=== PATIENT | male | born 1965 | race Asian ===

== ENCOUNTER 2017-06-25 12:24 | Emergency (ER) | payer OTHER ==
[~2017-06-25] VITALS: Ht 167.6 cm; Wt 59.7 kg
[2017-06-25 13:34] LABS: HEMATOCRIT 37.8 % (38.0-50.0); MCH 27.4 PG (29.0-34.0); MCHC 34.4 G/DL (30.0-36.0); MCV 79.7 FL (86-99); MEAN PLAT.VOLUME 10.9 uM^3 (9.0-12.4); PLATELET COUNT 174 K/uL (156-360); RBC DIS.WIDTH-CV 12.3 % (11.8-14.6); RBC DIS.WIDTH-SD 35.6 % (39-53); RED BLOOD COUNT 4.74 M/uL (4.00-5.50); WHITE BLOOD COUNT 5.2 K/uL (4.1-10.2)
[2017-06-25 13:45] LABS: CHLORIDE 95 mEq/L (99-109); POTASSIUM 4.2 mEq/L (3.7-5.4); SODIUM 128 mEq/L (136-147)
[2017-06-25 13:48] LABS: ANION GAP 12 MEQ/L (2-14)
[2017-06-25 13:49] LABS: TOTAL BILIRUBIN 0.3 mg/dL (0.0-1.0)
[2017-06-25 13:51] LABS: ALKALINE PHOSPHATASE 113 IU/L (3-129); GLUCOSE 745 mg/dL (70-99)
[2017-06-25 13:52] LABS: GFR ESTIMATE (CALCULATED) 53 mL/min/ (58.99-99999); UREA NITROGEN (BUN) 23 mg/dL (9-23)
[2017-06-25 13:53] LABS: DIRECT BILIRUBIN 0.1 mg/dL (0.0-0.3)
[2017-06-25 13:54] LABS: LIPASE 267 U/L (1.0-51.0); TROP-I INTERPRETATION NEGATIVE; TROPONIN-I 0.02 ng/mL (0.0-0.30)
[2017-06-25] MEDS ORDERED: PERCOCET 5/31 TABLET PO (16:12)
[2017-06-25] MEDS ORDERED: ZOFRAN4 MG PO (16:12)
[2017-06-25 16:21] VITALS: BP 193/112
[2017-06-25 16:24] LABS: POINT-OF-CARE METER ID UU13113747
[2017-06-26 12:00] LABS: POINT-OF-CARE METER ID UU13113747
== END 2017-06-25 16:33 | disposition left against medical advice (07) ==
LOC: EME 12:24 → EDBD 12:24 → EME 16:33
PROVIDERS: Emergency Medicine
DX: E11.65 Type 2 diabetes mellitus with hyperglycemia (principal); K85.90 Acute pancreatitis without necrosis or infection, unspecified; E86.0 Dehydration; Z72.0 Tobacco use; Z88.8 Allergy status to other drugs, medicaments and biological substances; Z91.041 Radiographic dye allergy status
CPT/HCPCS: 80048; 80076; 81003; 82948; 83690; 84484; 85027; 87086; 99281; 99285; J2270; J2405; J7030

== ENCOUNTER 2017-06-28 21:52 | Emergency (ER) | payer OTHER ==
[~2017-06-28] VITALS: Ht 167.6 cm; Wt 48.8 kg
[~2017-06-28 21:52] MED LIST: PERCOCET 5/31 TABLET PO; ZOFRAN4 MG PO
[2017-06-28 22:52] LABS: HEMATOCRIT 37.4 % (38.0-50.0); HEMOGLOBIN 13.2 G/DL (12.5-16.6); MCH 27.4 PG (29.0-34.0); MCHC 35.3 G/DL (30.0-36.0); MCV 77.8 FL (86-99); PLATELET COUNT 193 K/uL (156-360); RBC DIS.WIDTH-CV 12.3 % (11.8-14.6); RBC DIS.WIDTH-SD 34.6 % (39-53); RED BLOOD COUNT 4.81 M/uL (4.00-5.50); WHITE BLOOD COUNT 6.4 K/uL (4.1-10.2)
[2017-06-28 22:55] LABS: CARBON DIOXIDE (BICARBONATE) 25.4 MEQ/L (20-31)
[2017-06-28 23:05] LABS: ALBUMIN 3.4 g/dL (3.2-4.8); CHLORIDE 98 mEq/L (99-109); POTASSIUM 4.5 mEq/L (3.7-5.4); SODIUM 130 mEq/L (136-147)
[2017-06-28 23:06] LABS: MAGNESIUM 2.4 mg/dL (1.3-2.7)
[2017-06-28 23:08] LABS: TOTAL PROTEIN 6.7 g/dL (6.4-8.3)
[2017-06-28 23:11] LABS: ALKALINE PHOSPHATASE 100 IU/L (3-129)
[2017-06-28 23:12] LABS: CREATININE 1.3 mg/dL (0.6-1.3); GFR ESTIMATE (CALCULATED) > 59 mL/min/ (58.99-99999)
[2017-06-28 23:13] LABS: UREA NITROGEN (BUN) 25 mg/dL (9-23)
[2017-06-28 23:14] LABS: ALT (GPT) 14 IU/L (3-49)
[2017-06-28 23:15] LABS: LIPASE 209 U/L (1.0-51.0)
[2017-06-28 23:17] LABS: AST (GOT) 21 IU/L (2-34); GLUCOSE 448 mg/dL (70-99); TOTAL BILIRUBIN 0.2 mg/dL (0.0-1.0)
[2017-06-29] MEDS ORDERED: PERCOCET 5/31 TABLET PO (01:26)
[2017-06-29] MEDS ORDERED: ZOFRAN4 MG PO (01:26)
[2017-06-29 01:34] LABS: APPEARANCE CLEAR ((CLEAR)); BILIRUBIN NEGATIVE; BLOOD MODERATE; COLOR STRAW ((YELLOW)); GLUCOSE (STRIP) >=500; KETONES NEGATIVE; LEUKOCYTES NEGATIVE; NITRITE NEGATIVE; PROTEIN (STRIP) >=500; SPECIFIC GRAVITY 1.016 (1.000-1.030); UROBILINOGEN 0.2 MG/DL (0.2-1.0)
[2017-06-29 01:45] LABS: BACTERIA NONE SEEN /HPF; EPITHELIAL CELLS NONE SEEN /HPF; MUCUS NONE SEEN /LPF; UCUL ADDED? NO; WHITE BLOOD CELLS 0-5 /HPF (0-5)
[2017-06-29 01:47] VITALS: BP 177/113
== END 2017-06-29 01:50 | disposition home or self-care (01) ==
LOC: EME → EDBD 21:52 → EME 06-29 01:50
PROVIDERS: Emergency Medicine
DX: E11.65 Type 2 diabetes mellitus with hyperglycemia (principal); K85.90 Acute pancreatitis without necrosis or infection, unspecified; R31.9 Hematuria, unspecified; E86.0 Dehydration; K86.1 Other chronic pancreatitis; K86.81 Exocrine pancreatic insufficiency; I10 Essential (primary) hypertension; F17.200 Nicotine dependence, unspecified, uncomplicated; Z79.4 Long term (current) use of insulin
CPT/HCPCS: 80053; 81003; 82010; 82803; 82948; 83690; 83735; 85027; 99281; 99284; J2270; J2405; J3010; J7030

== ENCOUNTER 2017-07-16 07:32 | Inpatient (IN) | payer SELFPAY ==
[2017-07-16] VITALS (19 sets, daily range): BP systolic 119–174; BP diastolic 57–98
[~2017-07-16] VITALS: Ht 167.6 cm; Wt 58.8 kg
[2017-07-16 08:08] LABS: BASOPHIL (%) 0.9 % (0-1); BASOPHIL COUNT 0.1 K/uL (0-0.1); EOSINOPHIL (%) 3.1 % (0-5); EOSINOPHIL COUNT 0.2 K/uL (0-0.3); HEMOGLOBIN 12.3 G/DL (12.5-16.6); IMMATURE GRANULOCYTE (%) 0.4 % (0.0-0.7); MCHC 33.2 G/DL (30.0-36.0); MCV 81.1 FL (86-99); MONOCYTE (%) 5.5 % (3-12); MONOCYTE COUNT 0.3 K/uL (0-0.8); NEUTROPHIL (%) 72.1 % (45-76); NEUTROPHIL COUNT 3.9 K/uL (1.8-6.4); PLATELET COUNT 178 K/uL (156-360); RBC DIS.WIDTH-CV 12.5 % (11.8-14.6); RED BLOOD COUNT 4.56 M/uL (4.00-5.50); WHITE BLOOD COUNT 5.4 K/uL (4.1-10.2)
[2017-07-16 08:11] LABS: CARBON DIOXIDE (BICARBONATE) 25.4 MEQ/L (20-31)
[2017-07-16 08:19] LABS: ALBUMIN 3.4 g/dL (3.2-4.8); CHLORIDE 102 mEq/L (99-109); POTASSIUM 4.5 mEq/L (3.7-5.4); SODIUM 134 mEq/L (136-147)
[2017-07-16 08:22] LABS: GLUCOSE 498 mg/dL (70-99); TOTAL PROTEIN 6.1 g/dL (6.4-8.3)
[2017-07-16 08:25] LABS: ALKALINE PHOSPHATASE 84 IU/L (3-129); CREATININE 1.2 mg/dL (0.6-1.3); GFR ESTIMATE (CALCULATED) > 59 mL/min/ (58.99-99999); TOTAL BILIRUBIN 0.2 mg/dL (0.0-1.0)
[2017-07-16 08:26] LABS: UREA NITROGEN (BUN) 18 mg/dL (9-23)
[2017-07-16 08:27] LABS: AST (GOT) 12 IU/L (2-34)
[2017-07-16 08:28] LABS: ALT (GPT) 17 IU/L (3-49); LIPASE 86 U/L (1.0-51.0)
[2017-07-16 08:43] LABS: TROP-I INTERPRETATION NEGATIVE; TROPONIN-I 0.02 ng/mL (0.0-0.30)
[2017-07-16 09:40] LABS: AMYLASE 68 IU/L (1-118); CHLORIDE 105 mEq/L (99-109); SODIUM 133 mEq/L (136-147)
[2017-07-16 09:42] LABS: GLUCOSE 396 mg/dL (70-99); POTASSIUM 5.5 mEq/L (3.7-5.4)
[2017-07-16 09:45] LABS: CREATININE 1.1 mg/dL (0.6-1.3); GFR ESTIMATE (CALCULATED) > 59 mL/min/ (58.99-99999); SERUM ETHYL ALCOHOL < 10 mg/dL
[2017-07-16 09:46] LABS: UREA NITROGEN (BUN) 16 mg/dL (9-23)
[2017-07-16 09:57] LABS: TROP-I INTERPRETATION NEGATIVE; TROPONIN-I 0.02 ng/mL (0.0-0.30)
[2017-07-16 12:16] LABS: PTT 49.9 SEC (25-37)
[2017-07-16 12:25] LABS: TROP-I INTERPRETATION NEGATIVE; TROPONIN-I 0.02 ng/mL (0.0-0.30)
[2017-07-16 14:54] LABS: TROP-I INTERPRETATION NEGATIVE; TROPONIN-I 0.03 ng/mL (0.0-0.30)
[2017-07-16] MEDS ORDERED: ZOFRAN4 MG PO (15:52)
[2017-07-16] MEDS ORDERED: LANTUS 10100 UNITS/ SC (15:52)
[2017-07-16] MEDS ORDERED: NOVOLOG PE100 UNITS/ SC (15:53)
[2017-07-16 16:12] LABS: CKMB RELATIVE INDEX 1.5 (0.0-3.9); CREATINE KINASE 134 IU/L (1-294); TOTAL CK 134 IU/L (1-294)
[2017-07-16 18:18] LABS: TROP-I INTERPRETATION NEGATIVE; TROPONIN-I 0.01 ng/mL (0.0-0.30)
[2017-07-16 18:21] LABS: CK-MB 1.8 ng/mL (0.0-4.9)
[2017-07-16 19:40] LABS: CKMB RELATIVE INDEX 1.9 (0.0-3.9); CREATINE KINASE 97 IU/L (1-294); TOTAL CK 97 IU/L (1-294)
[2017-07-17] VITALS (10 sets, daily range): BP systolic 0–181; BP diastolic 0–98
[2017-07-17 05:56] LABS: BASOPHIL (%) 0.4 % (0-1); EOSINOPHIL (%) 0.1 % (0-5); HEMATOCRIT 32.8 % (38.0-50.0); HEMOGLOBIN 10.7 G/DL (12.5-16.6); IMMATURE GRANULOCYTE (%) 0.4 % (0.0-0.7); LYMPHOCYTE COUNT 1.4 K/uL (1.0-2.8); MCH 26.6 PG (29.0-34.0); MCHC 32.6 G/DL (30.0-36.0); MCV 81.4 FL (86-99); MONOCYTE (%) 7.7 % (3-12); MONOCYTE COUNT 0.6 K/uL (0-0.8); NEUTROPHIL (%) 74.4 % (45-76); NEUTROPHIL COUNT 6.1 K/uL (1.8-6.4); PLATELET COUNT 180 K/uL (156-360); RBC DIS.WIDTH-CV 12.8 % (11.8-14.6); RBC DIS.WIDTH-SD 37.9 % (39-53); RED BLOOD COUNT 4.03 M/uL (4.00-5.50); WHITE BLOOD COUNT 8.1 K/uL (4.1-10.2)
[2017-07-17 06:16] LABS: TROP-I INTERPRETATION NEGATIVE; TROPONIN-I 0.01 ng/mL (0.0-0.30)
[2017-07-17 06:18] LABS: AMYLASE 56 IU/L (1-118); CHLORIDE 106 MEQ/L (99-109); CREATININE 1.4 MG/DL (0.6-1.3); GFR ESTIMATE (CALCULATED) 57 mL/min/ (58.99-99999); HDL CHOLESTEROL 46 MG/DL (Desirable>=40); LDL CHOLESTEROL 183 mg/dL (Desirable<100); LIPASE 58 U/L (1.0-51.0); NON-HDL CHOLESTEROL 229 mg/dL (Desirable<160); SODIUM 137 MEQ/L (136-147); TOTAL CHOLESTEROL 275 mg/dL (Desirable<200); TRIGLYCERIDES 231 MG/DL (Normal: <150); UREA NITROGEN (BUN) 21 mg/dL (9-23)
[2017-07-17 06:20] LABS: CREATINE KINASE 68 IU/L (1-294); TOTAL CK 68 IU/L (1-294)
[2017-07-17 06:22] LABS: GLUCOSE 190 mg/dL (70-99); POTASSIUM 3.9 MEQ/L (3.7-5.4)
[2017-07-17 06:54] LABS: CK-MB 1.6 ng/mL (0.0-4.9); CKMB RELATIVE INDEX 2.4 (0.0-3.9)
[2017-07-17 09:48] LABS: HEMOGLOBIN A1c (GLYCOHEMOGLOB) 10.9 % (Below 5.7)
== END 2017-07-17 10:51 | disposition left against medical advice (07) | DRG 286 ==
LOC: EME 07:32 → CATH 09:51 → EME 09:51 → ENRESERV 10:36 → 4WEST 10:44 → 2SOUTH 10:44 → CANRESERV 10:45 → ENRESERV 10:45 → 4WEST 10:54
PROVIDERS: Emergency Medicine; Internal Medicine Cardiovascular Disease; Internal Medicine Critical Care Medicine
DX: I25.10 Atherosclerotic heart disease of native coronary artery without angina pectoris (principal); I24.9 Acute ischemic heart disease, unspecified; K85.90 Acute pancreatitis without necrosis or infection, unspecified; E11.65 Type 2 diabetes mellitus with hyperglycemia; K86.1 Other chronic pancreatitis; I45.10 Unspecified right bundle-branch block; F17.200 Nicotine dependence, unspecified, uncomplicated; Z79.4 Long term (current) use of insulin; Z90.49 Acquired absence of other specified parts of digestive tract
CPT/HCPCS: 71045; 80048; 80048 91; 80053; 80061; 81003; 82010; 82150; 82550; 82550 91; 82553; 82803; 82948; 83036; 83690; 84484; 85025; 85347; 85610; 85730; 86850; 86900; 86901; 87641; 93005; 99281; 99285; C1769; C1887; C1894; G0480; J0360; J1200; J1644; J1815; J2250; J2270; J2405; J2930; J3010; J7030; S0028

== ENCOUNTER 2017-07-30 06:39 | Emergency (ER) | payer SELFPAY ==
[~2017-07-30] VITALS: Ht 167.6 cm; Wt 58.2 kg
[~2017-07-30 06:39] MED LIST changes: +LANTUS 10100 UNITS/ SC; +NOVOLOG PE100 UNITS/ SC
[2017-07-30 07:36] LABS: BASOPHIL (%) 0.7 % (0-1); BASOPHIL COUNT 0.1 K/uL (0-0.1); EOSINOPHIL (%) 1.3 % (0-5); EOSINOPHIL COUNT 0.1 K/uL (0-0.3); HEMATOCRIT 39.8 % (38.0-50.0); IMMATURE GRANULOCYTE (%) 0.2 % (0.0-0.7); LYMPHOCYTE (%) 16.5 % (15-42); LYMPHOCYTE COUNT 1.4 K/uL (1.0-2.8); MCHC 33.4 G/DL (30.0-36.0); MCV 80.7 FL (86-99); MONOCYTE (%) 5.3 % (3-12); MONOCYTE COUNT 0.5 K/uL (0-0.8); NEUTROPHIL COUNT 6.6 K/uL (1.8-6.4); PLATELET COUNT 224 K/uL (156-360); RBC DIS.WIDTH-SD 37.7 % (39-53); RED BLOOD COUNT 4.93 M/uL (4.00-5.50); WHITE BLOOD COUNT 8.7 K/uL (4.1-10.2)
[2017-07-30 07:37] LABS: HEMOGLOBIN 13.3 G/DL (12.5-16.6)
[2017-07-30 07:41] LABS: TROP-I INTERPRETATION NEGATIVE; TROPONIN-I 0.06 ng/mL (0.0-0.30)
[2017-07-30 07:55] LABS: ALBUMIN 3.8 G/DL (3.2-4.8); ALKALINE PHOSPHATASE 110 IU/L (3-129); ALT (GPT) 23 IU/L (3-49); AST (GOT) 18 IU/L (2-34); CHLORIDE 103 MEQ/L (99-109); CREATININE 1.1 MG/DL (0.6-1.3); GFR ESTIMATE (CALCULATED) > 59 mL/min/ (58.99-99999); GLUCOSE 374 mg/dL (70-99); LIPASE 103 U/L (1.0-51.0); POTASSIUM 4.3 MEQ/L (3.7-5.4); SODIUM 132 MEQ/L (136-147); TOTAL BILIRUBIN 0.3 MG/DL (0.0-1.0); UREA NITROGEN (BUN) 20 mg/dL (9-23)
[2017-07-30 10:47] LABS: APPEARANCE CLEAR ((CLEAR)); BILIRUBIN NEGATIVE; BLOOD MODERATE; COLOR STRAW ((YELLOW)); GLUCOSE (STRIP) >=500; KETONES NEGATIVE; LEUKOCYTES NEGATIVE; NITRITE NEGATIVE; PROTEIN (STRIP) >=500; SPECIFIC GRAVITY 1.013 (1.000-1.030); UROBILINOGEN 0.2 MG/DL (0.2-1.0)
[2017-07-30 10:58] LABS: BACTERIA NONE SEEN /HPF; EPITHELIAL CELLS RARE /HPF; MUCUS TRACE /LPF; RED BLOOD CELLS 15-20 /HPF (0-5); UCUL ADDED? NO; WHITE BLOOD CELLS 0-5 /HPF (0-5)
[2017-07-30] MEDS ORDERED: LORTAB 10-3251 EACH PO (13:52)
[2017-07-30] MEDS ORDERED: ZOFRAN ODT4 MG PO (13:52)
[2017-07-30] MEDS ORDERED: PHENERGAN25 MG PR (13:52)
[2017-07-30 14:14] VITALS: BP 130/75
== END 2017-07-30 14:16 | disposition home or self-care (01) ==
LOC: EME → EDBD 06:39 → EME 06:39
PROVIDERS: Nurse Practitioner Family
DX: K86.1 Other chronic pancreatitis (principal); R11.2 Nausea with vomiting, unspecified; R19.7 Diarrhea, unspecified; E11.65 Type 2 diabetes mellitus with hyperglycemia; F32.9 Major depressive disorder, single episode, unspecified; Z86.73 Personal history of transient ischemic attack (TIA), and cerebral infarction without residual deficits; Z79.4 Long term (current) use of insulin; Z72.0 Tobacco use; Z88.8 Allergy status to other drugs, medicaments and biological substances
CPT/HCPCS: 74177; 80053; 81003; 83690; 84484; 85025; 87502; 93005; 99281; 99285; J1200; J2270; J2405; J2765; J3010; J7030; S0028

== ENCOUNTER 2017-08-05 13:43 | Observation (INO) | payer SELFPAY ==
[~2017-08-05] VITALS: Ht 165.1 cm; Wt 58.9 kg
[~2017-08-05 13:43] MED LIST changes: +LORTAB 10-3251 EACH PO; +PHENERGAN25 MG PR; +ZOFRAN ODT4 MG PO
[2017-08-05 14:19] LABS: HEMOGLOBIN 12.6 G/DL (12.5-16.6); MCH 26.8 PG (29.0-34.0); MCHC 33.2 G/DL (30.0-36.0); MCV 80.9 FL (86-99); PLATELET COUNT 224 K/uL (156-360); RBC DIS.WIDTH-CV 12.7 % (11.8-14.6); RBC DIS.WIDTH-SD 37.4 % (39-53); WHITE BLOOD COUNT 5.8 K/uL (4.1-10.2)
[2017-08-05 14:27] LABS: ALBUMIN 3.7 g/dL (3.2-4.8)
[2017-08-05 14:28] LABS: CHLORIDE 105 mEq/L (99-109); POTASSIUM 4.7 mEq/L (3.7-5.4); SODIUM 134 mEq/L (136-147)
[2017-08-05 14:30] LABS: GLUCOSE 280 mg/dL (70-99); TOTAL PROTEIN 6.8 g/dL (6.4-8.3)
[2017-08-05 14:32] LABS: TOTAL BILIRUBIN 0.1 mg/dL (0.0-1.0)
[2017-08-05 14:33] LABS: ALKALINE PHOSPHATASE 109 IU/L (3-129)
[2017-08-05 14:34] LABS: CREATININE 1.3 mg/dL (0.6-1.3); GFR ESTIMATE (CALCULATED) > 59 mL/min/ (58.99-99999)
[2017-08-05 14:35] LABS: AST (GOT) 17 IU/L (2-34); UREA NITROGEN (BUN) 27 mg/dL (9-23)
[2017-08-05 14:37] LABS: ALT (GPT) 22 IU/L (3-49); LIPASE 275 U/L (1.0-51.0)
[2017-08-05 15:23] LABS: AMYLASE 227 IU/L (1-118)
[2017-08-05 16:52] VITALS: BP 144/86
== END 2017-08-05 16:30 | disposition left against medical advice (07) ==
LOC: EME 13:43 → EDOF 16:24 → ENRESERV 16:29 → EDOF 16:30 → ENRESERV 16:38
DX: K85.90 Acute pancreatitis without necrosis or infection, unspecified (principal); E11.65 Type 2 diabetes mellitus with hyperglycemia; Z76.5 Malingerer [conscious simulation]; Z86.73 Personal history of transient ischemic attack (TIA), and cerebral infarction without residual deficits; F32.9 Major depressive disorder, single episode, unspecified; Z79.4 Long term (current) use of insulin; F17.200 Nicotine dependence, unspecified, uncomplicated
CPT/HCPCS: 80053; 81003; 82150; 82948; 83690; 85027; 99281; 99284; G0378; J2270; J2405; J3010; J7030

== ENCOUNTER 2017-08-06 10:59 | Emergency (ER) | payer SELFPAY ==
[~2017-08-06] VITALS: Ht 160 cm; Wt 97.6 kg
[2017-08-06 11:23] LABS: BASOPHIL (%) 0.6 % (0-1); BASOPHIL COUNT 0.1 K/uL (0-0.1); EOSINOPHIL (%) 0.2 % (0-5); HEMATOCRIT 39.5 % (38.0-50.0); HEMOGLOBIN 12.5 G/DL (12.5-16.6); IMMATURE GRANULOCYTE (%) 0.8 % (0.0-0.7); LYMPHOCYTE (%) 21.8 % (15-42); LYMPHOCYTE COUNT 2.2 K/uL (1.0-2.8); MCH 26.8 PG (29.0-34.0); MCHC 31.6 G/DL (30.0-36.0); MCV 84.8 FL (86-99); MONOCYTE (%) 4.3 % (3-12); MONOCYTE COUNT 0.4 K/uL (0-0.8); NEUTROPHIL (%) 72.3 % (45-76); NEUTROPHIL COUNT 7.3 K/uL (1.8-6.4); PLATELET COUNT 248 K/uL (156-360); RBC DIS.WIDTH-CV 13.1 % (11.8-14.6); RBC DIS.WIDTH-SD 40.4 % (39-53); RED BLOOD COUNT 4.66 M/uL (4.00-5.50); WHITE BLOOD COUNT 10.1 K/uL (4.1-10.2)
[2017-08-06 11:33] LABS: AMYLASE 234 IU/L (1-118); CHLORIDE 94 mEq/L (99-109); POTASSIUM 4.2 mEq/L (3.7-5.4); SODIUM 127 mEq/L (136-147)
[2017-08-06 11:38] LABS: SERUM ETHYL ALCOHOL < 10 mg/dL
[2017-08-06 11:39] LABS: UREA NITROGEN (BUN) 28 mg/dL (9-23)
[2017-08-06 11:41] LABS: CREATININE 2.1 mg/dL (0.6-1.3); GFR ESTIMATE (CALCULATED) 36 mL/min/ (58.99-99999); GLUCOSE 774 mg/dL (70-99); LIPASE 789 U/L (1.0-51.0)
[2017-08-06 11:44] LABS: TROP-I INTERPRETATION NEGATIVE; TROPONIN-I 0.05 ng/mL (0.0-0.30)
[2017-08-06 12:28] LABS: ALBUMIN 3.6 g/dL (3.2-4.8)
[2017-08-06 12:30] LABS: INTER. NORMALIZED RATIO 1.1
[2017-08-06 12:31] LABS: TOTAL PROTEIN 6.4 g/dL (6.4-8.3)
[2017-08-06 12:34] LABS: PTT ND SEC (25-37)
[2017-08-06 12:37] LABS: DIRECT BILIRUBIN 0.2 mg/dL (0.0-0.3)
[2017-08-06 12:38] LABS: ALT (GPT) 69 IU/L (3-49); TOTAL BILIRUBIN 0.2 mg/dL (0.0-1.0)
[2017-08-06 12:39] LABS: ALKALINE PHOSPHATASE 149 IU/L (3-129); AST (GOT) 75 IU/L (2-34)
[2017-08-06 12:56] LABS: CARBON DIOXIDE (BICARBONATE) 22.1 MEQ/L (20-31)
[2017-08-06 13:09] LABS: CHLORIDE 101 mEq/L (99-109); SODIUM 131 mEq/L (136-147)
[2017-08-06 13:11] LABS: GLUCOSE 751 mg/dL (70-99); POTASSIUM 5.3 mEq/L (3.7-5.4)
[2017-08-06 13:15] LABS: CREATININE 1.7 mg/dL (0.6-1.3); GFR ESTIMATE (CALCULATED) 46 mL/min/ (58.99-99999)
[2017-08-06 13:16] LABS: UREA NITROGEN (BUN) 28 mg/dL (9-23)
[2017-08-06 13:18] LABS: LIPASE 273 U/L (1.0-51.0)
[2017-08-06 15:39] LABS: APPEARANCE CLEAR ((CLEAR)); BILIRUBIN NEGATIVE; BLOOD MODERATE; COLOR STRAW ((YELLOW)); GLUCOSE (STRIP) >=500; KETONES NEGATIVE; LEUKOCYTES NEGATIVE; NITRITE NEGATIVE; PROTEIN (STRIP) 100; UROBILINOGEN 0.2 MG/DL (0.2-1.0)
[2017-08-06 15:50] LABS: AMPHETAMINE NEGATIVE (500 ng/mL); BARBITURATES NEGATIVE (200 ng/mL); BENZODIAZEPINES NEGATIVE (150 ng/mL); BUPRENORPHINE NEGATIVE (10 ng/mL); COCAINE NEGATIVE (150 ng/mL); METHADONE NEGATIVE (200 ng/mL); METHAMPHETAMINE NEGATIVE (500 ng/mL); OPIATES (MORPHINE) PRESUMPTIVE POSITIVE (100 ng/mL); OXYCODONE NEGATIVE (100 ng/mL); PHENCYCLIDINE NEGATIVE (25 ng/mL); PROPOXYPHENE NEGATIVE (300 ng/mL); THC CANNABINOIDS NEGATIVE (50 ng/mL); TRICYCLIC ANTIDEPRESSANTS NEGATIVE (300 ng/mL)
[2017-08-06 16:00] LABS: BACTERIA RARE /HPF; EPITHELIAL CELLS NONE SEEN /HPF; MUCUS NONE SEEN /LPF; UCUL ADDED? NO; WHITE BLOOD CELLS 0-5 /HPF (0-5)
[2017-08-06 16:05] LABS: CHLORIDE 99 mEq/L (99-109); POTASSIUM 5.6 mEq/L (3.7-5.4); SODIUM 129 mEq/L (136-147)
[2017-08-06 16:10] LABS: CREATININE 1.9 mg/dL (0.6-1.3); GFR ESTIMATE (CALCULATED) 40 mL/min/ (58.99-99999)
[2017-08-06 16:11] LABS: UREA NITROGEN (BUN) 28 mg/dL (9-23)
[2017-08-06 16:12] LABS: GLUCOSE 710 mg/dL (70-99)
[2017-08-06 18:07] LABS: CHLORIDE 102 mEq/L (99-109); POTASSIUM 5.1 mEq/L (3.7-5.4); SODIUM 133 mEq/L (136-147)
[2017-08-06 18:12] LABS: CREATININE 1.8 mg/dL (0.6-1.3); GFR ESTIMATE (CALCULATED) 43 mL/min/ (58.99-99999)
[2017-08-06 18:13] LABS: UREA NITROGEN (BUN) 28 mg/dL (9-23)
[2017-08-06 18:15] LABS: GLUCOSE 602 mg/dL (70-99)
[2017-08-06 19:16] VITALS: BP 112/73
[2017-08-07 08:31] LABS: HEMOGLOBIN A1c (GLYCOHEMOGLOB) 10.7 % (Below 5.7)
== END 2017-08-06 20:05 | disposition short-term general hospital (02) ==
LOC: EME 10:59 → ENRESERV 19:47 → CANRESERV 19:53 → ENRESERV 19:53 → EME 20:05
PROVIDERS: Emergency Medicine
PROC: 06HM33Z Insertion of Infusion Device into Right Femoral Vein, Percutaneous Approach (ICD-10-PCS; principal; 2017-08-06)
DX: I46.9 Cardiac arrest, cause unspecified (principal); E11.10 Type 2 diabetes mellitus with ketoacidosis without coma; K85.90 Acute pancreatitis without necrosis or infection, unspecified; I25.10 Atherosclerotic heart disease of native coronary artery without angina pectoris; I49.01 Ventricular fibrillation; N28.9 Disorder of kidney and ureter, unspecified; E78.5 Hyperlipidemia, unspecified; Z91.19 Patient's noncompliance with other medical treatment and regimen; F17.200 Nicotine dependence, unspecified, uncomplicated; F32.9 Major depressive disorder, single episode, unspecified; Z79.4 Long term (current) use of insulin; Z86.73 Personal history of transient ischemic attack (TIA), and cerebral infarction without residual deficits; Z88.8 Allergy status to other drugs, medicaments and biological substances
CPT/HCPCS: 71045; 80048; 80048 91; 80076; 81003; 82150; 82803; 82948; 83036; 83605; 83690; 84484; 84999; 85025; 85610; 85730; 86850; 86900; 86901; 87040; 93005; 99281; 99285; C1751; G0480; J0282; J1170; J1644; J1815; J2250; J2270; J2405; J3010; J7030; J7050

== ENCOUNTER 2017-08-25 11:22 | Inpatient (IN) | payer SELFPAY ==
[~2017-08-25] VITALS: Ht 167.6 cm; Wt 60.9 kg
[2017-08-25 13:15] LABS: INTER. NORMALIZED RATIO 1.2
[2017-08-25 13:16] LABS: BASOPHIL (%) 0.5 % (0-1); BASOPHIL COUNT 0.1 K/uL (0-0.1); EOSINOPHIL (%) 2.9 % (0-5); EOSINOPHIL COUNT 0.3 K/uL (0-0.3); HEMATOCRIT 27.3 % (38.0-50.0); IMMATURE GRANULOCYTE (%) 1.2 % (0.0-0.7); LYMPHOCYTE (%) 12.7 % (15-42); LYMPHOCYTE COUNT 1.2 K/uL (1.0-2.8); MCH 27.1 PG (29.0-34.0); MCV 82.2 FL (86-99); MONOCYTE (%) 6.8 % (3-12); MONOCYTE COUNT 0.6 K/uL (0-0.8); NEUTROPHIL (%) 75.9 % (45-76); NEUTROPHIL COUNT 7.2 K/uL (1.8-6.4); PLATELET COUNT 357 K/uL (156-360); RBC DIS.WIDTH-CV 13.3 % (11.8-14.6); RED BLOOD COUNT 3.32 M/uL (4.00-5.50); WHITE BLOOD COUNT 9.5 K/uL (4.1-10.2)
[2017-08-25 13:17] LABS: PTT 31.4 SEC (25-37)
[2017-08-25 13:18] LABS: ALBUMIN 3.2 g/dL (3.2-4.8); CHLORIDE 100 mEq/L (99-109); POTASSIUM 4.5 mEq/L (3.7-5.4); SODIUM 133 mEq/L (136-147)
[2017-08-25 13:20] LABS: GLUCOSE 367 mg/dL (70-99)
[2017-08-25 13:21] LABS: TOTAL PROTEIN 6.7 g/dL (6.4-8.3)
[2017-08-25 13:22] LABS: TOTAL BILIRUBIN 0.4 mg/dL (0.0-1.0)
[2017-08-25 13:24] LABS: ALKALINE PHOSPHATASE 161 IU/L (3-129); CREATININE 1.2 mg/dL (0.6-1.3); GFR ESTIMATE (CALCULATED) > 59 mL/min/ (58.99-99999)
[2017-08-25 13:25] LABS: UREA NITROGEN (BUN) 21 mg/dL (9-23)
[2017-08-25 13:26] LABS: AST (GOT) 15 IU/L (2-34)
[2017-08-25 13:27] LABS: ALT (GPT) 15 IU/L (3-49)
[2017-08-25 13:29] LABS: TROP-I INTERPRETATION POSITIVE
[2017-08-25 13:30] LABS: TROPONIN-I 2.15 ng/mL (0.0-0.30)
[2017-08-25 13:58] LABS: LIPASE 107 U/L (1.0-51.0)
[2017-08-25 15:09] LABS: TROP-I INTERPRETATION POSITIVE
[2017-08-25 15:15] LABS: TROPONIN-I 1.99 ng/mL (0.0-0.30)
[2017-08-25] MEDS ORDERED: PHENADOZ25 MG PR (16:16)
[2017-08-25] MEDS ORDERED: ZOFRAN ODT4 MG PO (16:17)
[2017-08-25] MEDS ORDERED: TRAMADOL HCL50 MG PO (21:38)
[2017-08-25] MEDS ORDERED: CREON DR 12,001 EAC1 PO (21:41)
[2017-08-25 22:46] LABS: TROP-I INTERPRETATION POSITIVE
[2017-08-25 22:52] LABS: TROPONIN-I 1.49 ng/mL (0.0-0.30)
[2017-08-25 23:30] VITALS: BP 133/78
[2017-08-26] VITALS (7 sets, daily range): BP systolic 14–158; BP diastolic 64–84
[2017-08-26 05:00] LABS: HEMATOCRIT 23.3 % (38.0-50.0); HEMOGLOBIN 7.7 G/DL (12.5-16.6); MCH 27.6 PG (29.0-34.0); MCV 83.5 FL (86-99); PLATELET COUNT 334 K/uL (156-360); RBC DIS.WIDTH-CV 13.2 % (11.8-14.6); RBC DIS.WIDTH-SD 40.6 % (39-53); RED BLOOD COUNT 2.79 M/uL (4.00-5.50); WHITE BLOOD COUNT 7.7 K/uL (4.1-10.2)
[2017-08-26 05:02] LABS: INTER. NORMALIZED RATIO 1.2
[2017-08-26 05:05] LABS: PTT 45.5 SEC (25-37)
[2017-08-26 05:17] LABS: TROP-I INTERPRETATION POSITIVE
[2017-08-26 05:18] LABS: TROPONIN-I 1.09 ng/mL (0.0-0.30)
[2017-08-26 05:20] LABS: CHLORIDE 102 mEq/L (99-109); SODIUM 132 mEq/L (136-147)
[2017-08-26 05:26] LABS: CREATININE 1.5 mg/dL (0.6-1.3); GFR ESTIMATE (CALCULATED) 53 mL/min/ (58.99-99999)
[2017-08-26 05:27] LABS: UREA NITROGEN (BUN) 25 mg/dL (9-23)
[2017-08-26 05:33] LABS: GLUCOSE 518 mg/dL (70-99); POTASSIUM 5.7 mEq/L (3.7-5.4)
[2017-08-26 14:38] LABS: TROP-I INTERPRETATION POSITIVE; TROPONIN-I 1.22 ng/mL (0.0-0.30)
[2017-08-27] VITALS (7 sets, daily range): BP systolic 150–183; BP diastolic 80–98
[2017-08-27 07:41] LABS: HEMATOCRIT 26.4 % (38.0-50.0); HEMOGLOBIN 8.6 G/DL (12.5-16.6); MCH 27.3 PG (29.0-34.0); MCHC 32.6 G/DL (30.0-36.0); MCV 83.8 FL (86-99); PLATELET COUNT 310 K/uL (156-360); RBC DIS.WIDTH-CV 13.7 % (11.8-14.6); RED BLOOD COUNT 3.15 M/uL (4.00-5.50); WHITE BLOOD COUNT 9.4 K/uL (4.1-10.2)
[2017-08-27 08:19] LABS: VANCOMYCIN, TROUGH 9.7 MCG/ML (10-20)
[2017-08-27 08:54] LABS: CHLORIDE 107 MEQ/L (99-109); CREATININE 0.9 MG/DL (0.6-1.3); GFR ESTIMATE (CALCULATED) > 59 mL/min/ (58.99-99999); GLUCOSE 101 mg/dL (70-99); POTASSIUM 3.9 MEQ/L (3.7-5.4); SODIUM 142 MEQ/L (136-147); UREA NITROGEN (BUN) 19 mg/dL (9-23)
[2017-08-28 03:24] VITALS: BP 169/84
[2017-08-28 08:55] VITALS: BP 172/94
[2017-08-28 11:52] VITALS: BP 153/85
[2017-08-28 15:50] VITALS: BP 150/81
[2017-08-28 19:30] VITALS: BP 143/82
[2017-08-28 23:30] VITALS: BP 152/84
[2017-08-29 03:10] VITALS: BP 161/86
[2017-08-29 05:40] LABS: HEMATOCRIT 29.3 % (38.0-50.0); HEMOGLOBIN 9.7 G/DL (12.5-16.6); MCH 27.2 PG (29.0-34.0); MCHC 33.1 G/DL (30.0-36.0); MCV 82.3 FL (86-99); PLATELET COUNT 310 K/uL (156-360); RBC DIS.WIDTH-CV 13.4 % (11.8-14.6); RBC DIS.WIDTH-SD 40.3 % (39-53); RED BLOOD COUNT 3.56 M/uL (4.00-5.50); WHITE BLOOD COUNT 8.4 K/uL (4.1-10.2)
[2017-08-29 06:36] LABS: CHLORIDE 105 MEQ/L (99-109); GFR ESTIMATE (CALCULATED) > 59 mL/min/ (58.99-99999); POTASSIUM 3.6 MEQ/L (3.7-5.4); SODIUM 136 MEQ/L (136-147); UREA NITROGEN (BUN) 23 mg/dL (9-23); VANCOMYCIN, TROUGH 12.5 MCG/ML (10-20)
[2017-08-29 06:51] LABS: GLUCOSE 182 mg/dL (70-99)
[2017-08-29 08:16] VITALS: BP 159/78
== END 2017-08-29 11:43 | disposition left against medical advice (07) | DRG 438 ==
LOC: EME 11:22 → 4EAST 13:50 → EDOF 13:50 → ENRESERV 14:15 → EDOF 14:15 → ENRESERV 19:48 → 4EAST 23:01
PROVIDERS: Emergency Medicine; Hospitalist; Internal Medicine
DX: K85.90 Acute pancreatitis without necrosis or infection, unspecified (principal); J18.9 Pneumonia, unspecified organism; N17.9 Acute kidney failure, unspecified; K86.1 Other chronic pancreatitis; E11.65 Type 2 diabetes mellitus with hyperglycemia; I25.10 Atherosclerotic heart disease of native coronary artery without angina pectoris; E78.5 Hyperlipidemia, unspecified; D64.9 Anemia, unspecified; I10 Essential (primary) hypertension; E11.51 Type 2 diabetes mellitus with diabetic peripheral angiopathy without gangrene; K73.9 Chronic hepatitis, unspecified; J98.11 Atelectasis; I73.9 Peripheral vascular disease, unspecified; E87.5 Hyperkalemia; J90 Pleural effusion, not elsewhere classified; I42.9 Cardiomyopathy, unspecified; F17.200 Nicotine dependence, unspecified, uncomplicated; Y95 Nosocomial condition; Z95.1 Presence of aortocoronary bypass graft; Z90.49 Acquired absence of other specified parts of digestive tract; Z91.19 Patient's noncompliance with other medical treatment and regimen; Z91.14 Patient's other noncompliance with medication regimen; Z86.73 Personal history of transient ischemic attack (TIA), and cerebral infarction without residual deficits; Z79.4 Long term (current) use of insulin; Z83.3 Family history of diabetes mellitus; Z82.49 Family history of ischemic heart disease and other diseases of the circulatory system; I25.2 Old myocardial infarction; Z68.1 Body mass index [BMI] 19.9 or less, adult; Z86.74 Personal history of sudden cardiac arrest
CPT/HCPCS: 71045; 71260; 74177; 74181; 80048; 80053; 80202; 81003; 82948; 83605; 83690; 84484; 85025; 85027; 85610; 85730; 86850; 86900; 86901; 86920; 87040; 87070; 87205; 87641; 93005; 93306; 94640; 94640 76; 99202; 99281; 99285; C9113; J0692; J1170; J1200; J1644; J1815; J1940; J2270; J2405; J2920; J2930; J3370; J7030; J7512; P9016; S0028

== ENCOUNTER 2017-09-01 11:53 | Emergency (ER) | payer SELFPAY ==
[~2017-09-01] VITALS: Ht 165.1 cm; Wt 55.9 kg
[~2017-09-01 11:53] MED LIST changes: +CREON DR 12,001 EAC1 PO; +PHENADOZ25 MG PR; +TRAMADOL HCL50 MG PO
[2017-09-01 13:08] LABS: BASOPHIL (%) 0.7 % (0-1); BASOPHIL COUNT 0.1 K/uL (0-0.1); EOSINOPHIL (%) 6.2 % (0-5); EOSINOPHIL COUNT 0.7 K/uL (0-0.3); HEMATOCRIT 33.2 % (38.0-50.0); HEMOGLOBIN 11.1 G/DL (12.5-16.6); IMMATURE GRANULOCYTE (%) 0.7 % (0.0-0.7); LYMPHOCYTE (%) 11.7 % (15-42); LYMPHOCYTE COUNT 1.2 K/uL (1.0-2.8); MCH 27.5 PG (29.0-34.0); MCHC 33.4 G/DL (30.0-36.0); MCV 82.2 FL (86-99); MONOCYTE (%) 7.2 % (3-12); MONOCYTE COUNT 0.8 K/uL (0-0.8); NEUTROPHIL (%) 73.5 % (45-76); NEUTROPHIL COUNT 7.8 K/uL (1.8-6.4); PLATELET COUNT 324 K/uL (156-360); RBC DIS.WIDTH-CV 13.4 % (11.8-14.6); RBC DIS.WIDTH-SD 40.3 % (39-53); RED BLOOD COUNT 4.04 M/uL (4.00-5.50); WHITE BLOOD COUNT 10.6 K/uL (4.1-10.2)
[2017-09-01 13:19] LABS: ALBUMIN 2.9 g/dL (3.2-4.8); CHLORIDE 103 mEq/L (99-109); POTASSIUM 3.5 mEq/L (3.7-5.4); SODIUM 135 mEq/L (136-147)
[2017-09-01 13:21] LABS: GLUCOSE 245 mg/dL (70-99); TOTAL PROTEIN 5.7 g/dL (6.4-8.3)
[2017-09-01 13:23] LABS: TOTAL BILIRUBIN 0.4 mg/dL (0.0-1.0)
[2017-09-01 13:25] LABS: ALKALINE PHOSPHATASE 150 IU/L (3-129); CREATININE 0.8 mg/dL (0.6-1.3); GFR ESTIMATE (CALCULATED) > 59 mL/min/ (58.99-99999)
[2017-09-01 13:26] LABS: AST (GOT) 12 IU/L (2-34); UREA NITROGEN (BUN) 12 mg/dL (9-23)
[2017-09-01 13:28] LABS: ALT (GPT) 15 IU/L (3-49); LIPASE 86 U/L (1.0-51.0)
[2017-09-01 14:29] LABS: TROP-I INTERPRETATION NEGATIVE; TROPONIN-I 0.26 ng/mL (0.0-0.30)
[2017-09-01] MEDS ORDERED: TYLENOL WITH C1 EACH PO (15:05)
[2017-09-01 15:29] VITALS: BP 154/90
== END 2017-09-01 15:31 | disposition home or self-care (01) ==
LOC: EME 11:53
PROVIDERS: Emergency Medicine
DX: R10.13 Epigastric pain (principal); R11.10 Vomiting, unspecified; R19.7 Diarrhea, unspecified; J90 Pleural effusion, not elsewhere classified; E11.9 Type 2 diabetes mellitus without complications; I25.2 Old myocardial infarction; Z86.74 Personal history of sudden cardiac arrest; Z95.1 Presence of aortocoronary bypass graft; F32.9 Major depressive disorder, single episode, unspecified; Z86.73 Personal history of transient ischemic attack (TIA), and cerebral infarction without residual deficits; F17.200 Nicotine dependence, unspecified, uncomplicated; Z79.4 Long term (current) use of insulin; Z88.8 Allergy status to other drugs, medicaments and biological substances
CPT/HCPCS: 71045; 80053; 82948; 83690; 84484; 85025; 93005; 99281; 99284; J2405

== ENCOUNTER 2017-09-02 23:04 | Emergency (ER) | payer SELFPAY ==
[~2017-09-02] VITALS: Ht 165.1 cm; Wt 53.9 kg
[~2017-09-02 23:04] MED LIST changes: +TYLENOL WITH C1 EACH PO
[2017-09-03 01:08] LABS: BASOPHIL (%) 0.7 % (0-1); BASOPHIL COUNT 0.1 K/uL (0-0.1); EOSINOPHIL (%) 5.5 % (0-5); EOSINOPHIL COUNT 0.5 K/uL (0-0.3); HEMATOCRIT 34.2 % (38.0-50.0); HEMOGLOBIN 11.4 G/DL (12.5-16.6); IMMATURE GRANULOCYTE (%) 0.4 % (0.0-0.7); LYMPHOCYTE (%) 14.4 % (15-42); LYMPHOCYTE COUNT 1.4 K/uL (1.0-2.8); MCH 27.2 PG (29.0-34.0); MCHC 33.3 G/DL (30.0-36.0); MCV 81.6 FL (86-99); MONOCYTE (%) 7.5 % (3-12); MONOCYTE COUNT 0.7 K/uL (0-0.8); NEUTROPHIL (%) 71.5 % (45-76); NEUTROPHIL COUNT 6.8 K/uL (1.8-6.4); PLATELET COUNT 303 K/uL (156-360); RBC DIS.WIDTH-CV 13.3 % (11.8-14.6); RBC DIS.WIDTH-SD 39.2 % (39-53); RED BLOOD COUNT 4.19 M/uL (4.00-5.50); WHITE BLOOD COUNT 9.5 K/uL (4.1-10.2)
[2017-09-03 01:19] LABS: ALBUMIN 3.3 g/dL (3.2-4.8); CHLORIDE 103 mEq/L (99-109); SODIUM 137 mEq/L (136-147)
[2017-09-03 01:21] LABS: GLUCOSE 303 mg/dL (70-99)
[2017-09-03 01:25] LABS: ALKALINE PHOSPHATASE 167 IU/L (3-129); GFR ESTIMATE (CALCULATED) > 59 mL/min/ (58.99-99999)
[2017-09-03 01:26] LABS: UREA NITROGEN (BUN) 16 mg/dL (9-23)
[2017-09-03 01:27] LABS: AST (GOT) 15 IU/L (2-34)
[2017-09-03 01:28] LABS: ALT (GPT) 17 IU/L (3-49); LIPASE 160 U/L (1.0-51.0)
[2017-09-03 01:29] LABS: TROP-I INTERPRETATION NEGATIVE; TROPONIN-I 0.19 ng/mL (0.0-0.30)
[2017-09-03 01:30] LABS: TOTAL BILIRUBIN 0.3 mg/dL (0.0-1.0); TOTAL PROTEIN 6.6 g/dL (6.4-8.3)
[2017-09-03 03:55] VITALS: BP 158/92
== END 2017-09-03 03:56 | disposition home or self-care (01) ==
LOC: EME 23:04
PROVIDERS: Emergency Medicine
DX: R10.13 Epigastric pain (principal); K85.90 Acute pancreatitis without necrosis or infection, unspecified; K80.50 Calculus of bile duct without cholangitis or cholecystitis without obstruction; R07.9 Chest pain, unspecified; E11.65 Type 2 diabetes mellitus with hyperglycemia; J90 Pleural effusion, not elsewhere classified; K86.1 Other chronic pancreatitis; F17.200 Nicotine dependence, unspecified, uncomplicated; F32.9 Major depressive disorder, single episode, unspecified; Z98.890 Other specified postprocedural states; Z79.4 Long term (current) use of insulin; Z86.73 Personal history of transient ischemic attack (TIA), and cerebral infarction without residual deficits; Z95.1 Presence of aortocoronary bypass graft; Z86.74 Personal history of sudden cardiac arrest; Z91.041 Radiographic dye allergy status; Z88.8 Allergy status to other drugs, medicaments and biological substances
CPT/HCPCS: 71045; 74176; 80053; 83690; 84484; 85025; 93005; 99281; 99285; J2405; J3010; J7030

== ENCOUNTER 2017-09-04 19:44 | Inpatient (IN) | payer SELFPAY ==
[~2017-09-04] VITALS: Ht 165.1 cm; Wt 61.5 kg
[2017-09-04 20:33] LABS: BASOPHIL (%) 1.1 % (0-1); BASOPHIL COUNT 0.1 K/uL (0-0.1); EOSINOPHIL COUNT 0.7 K/uL (0-0.3); HEMATOCRIT 30.5 % (38.0-50.0); HEMOGLOBIN 10.2 G/DL (12.5-16.6); IMMATURE GRANULOCYTE (%) 0.3 % (0.0-0.7); LYMPHOCYTE (%) 21.3 % (15-42); LYMPHOCYTE COUNT 1.5 K/uL (1.0-2.8); MCH 27.2 PG (29.0-34.0); MCHC 33.4 G/DL (30.0-36.0); MCV 81.3 FL (86-99); MONOCYTE (%) 8.2 % (3-12); MONOCYTE COUNT 0.6 K/uL (0-0.8); NEUTROPHIL (%) 60.1 % (45-76); NEUTROPHIL COUNT 4.3 K/uL (1.8-6.4); PLATELET COUNT 260 K/uL (156-360); RBC DIS.WIDTH-CV 13.4 % (11.8-14.6); RBC DIS.WIDTH-SD 39.7 % (39-53); RED BLOOD COUNT 3.75 M/uL (4.00-5.50); WHITE BLOOD COUNT 7.2 K/uL (4.1-10.2)
[2017-09-04 20:41] LABS: ALBUMIN 3.1 g/dL (3.2-4.8); CHLORIDE 99 mEq/L (99-109); POTASSIUM 4.2 mEq/L (3.7-5.4); SODIUM 135 mEq/L (136-147)
[2017-09-04 20:43] LABS: TOTAL PROTEIN 6.2 g/dL (6.4-8.3)
[2017-09-04 20:47] LABS: ALKALINE PHOSPHATASE 156 IU/L (3-129); CREATININE 1.2 mg/dL (0.6-1.3); GFR ESTIMATE (CALCULATED) > 59 mL/min/ (58.99-99999)
[2017-09-04 20:48] LABS: UREA NITROGEN (BUN) 24 mg/dL (9-23)
[2017-09-04 20:49] LABS: AST (GOT) 12 IU/L (2-34)
[2017-09-04 20:50] LABS: ALT (GPT) 13 IU/L (3-49); LIPASE 153 U/L (1.0-51.0)
[2017-09-04 20:52] LABS: GLUCOSE 418 mg/dL (70-99); TOTAL BILIRUBIN 0.2 mg/dL (0.0-1.0)
[2017-09-05 00:24] VITALS: BP 178/93
[2017-09-05 03:26] VITALS: BP 108/66
[2017-09-05 07:16] LABS: BASOPHIL (%) 1.3 % (0-1); BASOPHIL COUNT 0.1 K/uL (0-0.1); EOSINOPHIL (%) 12.3 % (0-5); EOSINOPHIL COUNT 0.9 K/uL (0-0.3); HEMATOCRIT 28.5 % (38.0-50.0); HEMOGLOBIN 9.2 G/DL (12.5-16.6); IMMATURE GRANULOCYTE (%) 0.3 % (0.0-0.7); LYMPHOCYTE COUNT 1.8 K/uL (1.0-2.8); MCH 27.1 PG (29.0-34.0); MCHC 32.3 G/DL (30.0-36.0); MCV 84.1 FL (86-99); MONOCYTE (%) 7.5 % (3-12); MONOCYTE COUNT 0.5 K/uL (0-0.8); NEUTROPHIL (%) 52.6 % (45-76); NEUTROPHIL COUNT 3.6 K/uL (1.8-6.4); PLATELET COUNT 232 K/uL (156-360); RBC DIS.WIDTH-CV 13.6 % (11.8-14.6); RBC DIS.WIDTH-SD 41.9 % (39-53); RED BLOOD COUNT 3.39 M/uL (4.00-5.50); WHITE BLOOD COUNT 6.9 K/uL (4.1-10.2)
[2017-09-05 07:38] LABS: ALBUMIN 2.6 G/DL (3.2-4.8); ALKALINE PHOSPHATASE 124 IU/L (3-129); ALT (GPT) 12 IU/L (3-49); AST (GOT) 11 IU/L (2-34); CHLORIDE 107 MEQ/L (99-109); CREATININE 0.9 MG/DL (0.6-1.3); GFR ESTIMATE (CALCULATED) > 59 mL/min/ (58.99-99999); POTASSIUM 4.2 MEQ/L (3.7-5.4); SODIUM 137 MEQ/L (136-147); TOTAL BILIRUBIN 0.2 MG/DL (0.0-1.0); TOTAL PROTEIN 4.9 G/DL (6.4-8.3); UREA NITROGEN (BUN) 20 mg/dL (9-23)
[2017-09-05 07:42] LABS: GLUCOSE 193 mg/dL (70-99)
[2017-09-05 08:43] VITALS: BP 120/66
[2017-09-05 11:41] VITALS: BP 122/68
[2017-09-05 15:30] VITALS: BP 133/76
[2017-09-05 19:29] VITALS: BP 141/86
[2017-09-06 05:52] VITALS: BP 163/84
[2017-09-06 08:33] VITALS: BP 162/80
[2017-09-06 11:28] VITALS: BP 159/83
[2017-09-07] MEDS ORDERED: PERCOCET 10/1 TABLET PO (19:27)
[2017-09-07] MEDS ORDERED: ZOFRAN4 MG PO (19:27)
== END 2017-09-06 13:08 | disposition left against medical advice (07) | DRG 438 ==
LOC: EME 19:44 → 3EAST 22:34 → EDOF 22:34 → ENRESERV 22:36 → 3EAST 09-05 00:11
PROVIDERS: Emergency Medicine; Hospitalist
DX: K85.10 Biliary acute pancreatitis without necrosis or infection (principal); I21.4 Non-ST elevation (NSTEMI) myocardial infarction; J98.11 Atelectasis; J90 Pleural effusion, not elsewhere classified; K86.1 Other chronic pancreatitis; K73.9 Chronic hepatitis, unspecified; F17.210 Nicotine dependence, cigarettes, uncomplicated; E11.65 Type 2 diabetes mellitus with hyperglycemia; E78.5 Hyperlipidemia, unspecified; I10 Essential (primary) hypertension; D64.9 Anemia, unspecified; E11.51 Type 2 diabetes mellitus with diabetic peripheral angiopathy without gangrene; I25.10 Atherosclerotic heart disease of native coronary artery without angina pectoris; I45.10 Unspecified right bundle-branch block; K80.50 Calculus of bile duct without cholangitis or cholecystitis without obstruction; F41.9 Anxiety disorder, unspecified; Z91.11 Patient's noncompliance with dietary regimen; Z91.14 Patient's other noncompliance with medication regimen; Z91.19 Patient's noncompliance with other medical treatment and regimen; Z95.1 Presence of aortocoronary bypass graft; Z90.49 Acquired absence of other specified parts of digestive tract; Z86.74 Personal history of sudden cardiac arrest; Z88.5 Allergy status to narcotic agent
CPT/HCPCS: 71045; 74176; 80053; 81003; 82948; 83690; 84484; 85025; 93005; 99281; 99284; 99285; J1650; J1815; J2270; J2405; J3010; J7030; J7120

== ENCOUNTER 2017-09-07 12:33 | Emergency (ER) | payer SELFPAY ==
[~2017-09-07] VITALS: Ht 165.1 cm; Wt 52.9 kg
[2017-09-07 14:23] LABS: HEMATOCRIT 29.1 % (38.0-50.0); HEMOGLOBIN 9.7 G/DL (12.5-16.6); MCH 27.2 PG (29.0-34.0); MCHC 33.3 G/DL (30.0-36.0); MCV 81.7 FL (86-99); PLATELET COUNT 218 K/uL (156-360); RBC DIS.WIDTH-CV 13.4 % (11.8-14.6); RED BLOOD COUNT 3.56 M/uL (4.00-5.50); WHITE BLOOD COUNT 5.8 K/uL (4.1-10.2)
[2017-09-07 14:40] LABS: ALBUMIN 2.9 g/dL (3.2-4.8); CHLORIDE 104 mEq/L (99-109); SODIUM 138 mEq/L (136-147)
[2017-09-07 14:42] LABS: TOTAL PROTEIN 5.6 g/dL (6.4-8.3)
[2017-09-07 14:46] LABS: ALKALINE PHOSPHATASE 154 IU/L (3-129); GFR ESTIMATE (CALCULATED) > 59 mL/min/ (58.99-99999); TOTAL BILIRUBIN 0.2 mg/dL (0.0-1.0)
[2017-09-07 14:47] LABS: UREA NITROGEN (BUN) 14 mg/dL (9-23)
[2017-09-07 14:48] LABS: AST (GOT) 12 IU/L (2-34)
[2017-09-07 14:49] LABS: ALT (GPT) 14 IU/L (3-49); LIPASE 68 U/L (1.0-51.0)
[2017-09-07 14:51] LABS: GLUCOSE 339 mg/dL (70-99)
[2017-09-07 15:32] LABS: TROP-I INTERPRETATION NEGATIVE
[2017-09-07 18:49] LABS: APPEARANCE CLEAR ((CLEAR)); BILIRUBIN NEGATIVE; BLOOD SMALL; COLOR STRAW ((YELLOW)); GLUCOSE (STRIP) >=500; KETONES NEGATIVE; LEUKOCYTES NEGATIVE; NITRITE NEGATIVE; PROTEIN (STRIP) >=500; SPECIFIC GRAVITY 1.015 (1.000-1.030); UROBILINOGEN 0.2 MG/DL (0.2-1.0)
[2017-09-07 18:54] LABS: BACTERIA RARE /HPF; EPITHELIAL CELLS NONE SEEN /HPF; MUCUS TRACE /LPF; WHITE BLOOD CELLS 0-5 /HPF (0-5)
[2017-09-07 19:10] LABS: AMPHETAMINE NEGATIVE (500 ng/mL); BARBITURATES NEGATIVE (200 ng/mL); BENZODIAZEPINES NEGATIVE (150 ng/mL); BUPRENORPHINE NEGATIVE (10 ng/mL); COCAINE NEGATIVE (150 ng/mL); METHADONE NEGATIVE (200 ng/mL); METHAMPHETAMINE NEGATIVE (500 ng/mL); OPIATES (MORPHINE) PRESUMPTIVE POSITIVE (100 ng/mL); OXYCODONE NEGATIVE (100 ng/mL); PHENCYCLIDINE NEGATIVE (25 ng/mL); PROPOXYPHENE NEGATIVE (300 ng/mL); THC CANNABINOIDS NEGATIVE (50 ng/mL); TRICYCLIC ANTIDEPRESSANTS NEGATIVE (300 ng/mL)
[2017-09-07] MEDS ORDERED: PERCOCET 10/1 TABLET PO (19:27)
[2017-09-07] MEDS ORDERED: ZOFRAN4 MG PO (19:27)
[2017-09-07 20:01] VITALS: BP 148/98
== END 2017-09-07 20:02 | disposition home or self-care (01) ==
LOC: EME 12:33
PROVIDERS: Emergency Medicine
DX: K85.90 Acute pancreatitis without necrosis or infection, unspecified (principal); K86.1 Other chronic pancreatitis; E11.65 Type 2 diabetes mellitus with hyperglycemia; I45.10 Unspecified right bundle-branch block; R94.31 Abnormal electrocardiogram [ECG] [EKG]; F32.9 Major depressive disorder, single episode, unspecified; F17.200 Nicotine dependence, unspecified, uncomplicated; Z90.49 Acquired absence of other specified parts of digestive tract; Z95.1 Presence of aortocoronary bypass graft; Z86.73 Personal history of transient ischemic attack (TIA), and cerebral infarction without residual deficits; Z86.74 Personal history of sudden cardiac arrest; Z91.041 Radiographic dye allergy status; Z88.8 Allergy status to other drugs, medicaments and biological substances
CPT/HCPCS: 80053; 81003; 82800; 82948; 83690; 83930; 84484; 84999; 85027; 93005; 99281; 99285; J2270; J2405; J3010; J7030

== ENCOUNTER 2017-09-09 19:08 | Emergency (ER) | payer OTHER ==
[~2017-09-09] VITALS: Ht 165.1 cm; Wt 57.2 kg
[~2017-09-09 19:08] MED LIST changes: +PERCOCET 10/1 TABLET PO
[2017-09-09 19:31] LABS: HEMATOCRIT 32.7 % (38.0-50.0); HEMOGLOBIN 10.9 G/DL (12.5-16.6); MCH 27.1 PG (29.0-34.0); MCHC 33.3 G/DL (30.0-36.0); MCV 81.3 FL (86-99); PLATELET COUNT 198 K/uL (156-360); RBC DIS.WIDTH-CV 13.4 % (11.8-14.6); RBC DIS.WIDTH-SD 40.1 % (39-53); RED BLOOD COUNT 4.02 M/uL (4.00-5.50); WHITE BLOOD COUNT 5.9 K/uL (4.1-10.2)
[2017-09-09 19:39] LABS: ALBUMIN 3.2 g/dL (3.2-4.8); CHLORIDE 102 mEq/L (99-109); POTASSIUM 3.7 mEq/L (3.7-5.4); SODIUM 137 mEq/L (136-147)
[2017-09-09 19:42] LABS: TOTAL PROTEIN 6.3 g/dL (6.4-8.3)
[2017-09-09 19:45] LABS: ALKALINE PHOSPHATASE 167 IU/L (3-129); CREATININE 1.1 mg/dL (0.6-1.3); GFR ESTIMATE (CALCULATED) > 59 mL/min/ (58.99-99999); SERUM ETHYL ALCOHOL < 10 mg/dL
[2017-09-09 19:47] LABS: AST (GOT) 15 IU/L (2-34); UREA NITROGEN (BUN) 11 mg/dL (9-23)
[2017-09-09 19:48] LABS: ALT (GPT) 18 IU/L (3-49)
[2017-09-09 19:49] LABS: LIPASE 83 U/L (1.0-51.0)
[2017-09-09 19:51] LABS: GLUCOSE 444 mg/dL (70-99); TOTAL BILIRUBIN 0.3 mg/dL (0.0-1.0)
[2017-09-09 22:04] VITALS: BP 152/97
== END 2017-09-09 22:16 | disposition home or self-care (01) ==
LOC: EME 19:08
PROVIDERS: Emergency Medicine
DX: K86.1 Other chronic pancreatitis (principal); E11.65 Type 2 diabetes mellitus with hyperglycemia; F32.9 Major depressive disorder, single episode, unspecified; F17.200 Nicotine dependence, unspecified, uncomplicated; Z86.73 Personal history of transient ischemic attack (TIA), and cerebral infarction without residual deficits; Z86.74 Personal history of sudden cardiac arrest; Z95.1 Presence of aortocoronary bypass graft; Z88.8 Allergy status to other drugs, medicaments and biological substances
CPT/HCPCS: 80053; 81003; 82948; 83690; 85027; 93005; 99281; 99285; G0480; J2270; J7030

== ENCOUNTER 2017-12-23 23:44 | Inpatient (IN) | payer OTHER ==
[~2017-12-23] VITALS: Ht 167.6 cm; Wt 59.9 kg
[2017-12-24 00:11] LABS: HEMATOCRIT 34.4 % (38.0-50.0); HEMOGLOBIN 11.4 G/DL (12.5-16.6); MCH 26.3 PG (29.0-34.0); MCHC 33.1 G/DL (30.0-36.0); MCV 79.3 FL (86-99); PLATELET COUNT 149 K/uL (156-360); RBC DIS.WIDTH-CV 13.7 % (11.8-14.6); RBC DIS.WIDTH-SD 38.9 % (39-53); RED BLOOD COUNT 4.34 M/uL (4.00-5.50); WHITE BLOOD COUNT 7.6 K/uL (4.1-10.2)
[2017-12-24 00:25] LABS: ALBUMIN 3.3 g/dL (3.2-4.8); CHLORIDE 103 mEq/L (99-109); POTASSIUM 4.3 mEq/L (3.7-5.4)
[2017-12-24 00:26] LABS: SODIUM 135 mEq/L (136-147)
[2017-12-24 00:28] LABS: TOTAL PROTEIN 6.1 g/dL (6.4-8.3)
[2017-12-24 00:30] LABS: TOTAL BILIRUBIN 0.2 mg/dL (0.0-1.0)
[2017-12-24 00:31] LABS: ALKALINE PHOSPHATASE 131 IU/L (3-129); CREATININE 1.5 mg/dL (0.6-1.3); GFR ESTIMATE (CALCULATED) 53 mL/min/ (58.99-99999)
[2017-12-24 00:33] LABS: AST (GOT) 21 IU/L (2-34); UREA NITROGEN (BUN) 21 mg/dL (9-23)
[2017-12-24 00:34] LABS: ALT (GPT) 27 IU/L (3-49)
[2017-12-24 00:35] LABS: GLUCOSE 464 mg/dL (70-99); LIPASE 135 U/L (1.0-51.0)
[2017-12-24 02:41] LABS: APPEARANCE CLEAR ((CLEAR)); BILIRUBIN NEGATIVE; BLOOD SMALL; COLOR STRAW ((YELLOW)); GLUCOSE (STRIP) >=500; KETONES NEGATIVE; LEUKOCYTES NEGATIVE; NITRITE NEGATIVE; PROTEIN (STRIP) 100; SPECIFIC GRAVITY 1.015 (1.000-1.030); UROBILINOGEN 0.2 MG/DL (0.2-1.0)
[2017-12-24 02:45] LABS: BACTERIA NONE SEEN /HPF; EPITHELIAL CELLS NONE SEEN /HPF; MUCUS NONE SEEN /LPF; UCUL ADDED? NO; WHITE BLOOD CELLS 0-5 /HPF (0-5)
[2017-12-24 05:07] LABS: C-REACTIVE PROTEIN 4.4 MG/L (0-10)
[2017-12-24 05:58] VITALS: BP 157/87
== END 2017-12-24 07:45 | disposition left against medical advice (07) | DRG 439 ==
LOC: EME 23:44 → EDOF 12-24 04:07 → ENRESERV 12-24 04:10 → 5EAST 12-24 05:50
PROVIDERS: Hospitalist
DX: K85.90 Acute pancreatitis without necrosis or infection, unspecified (principal); E11.65 Type 2 diabetes mellitus with hyperglycemia; K86.1 Other chronic pancreatitis; I13.0 Hypertensive heart and chronic kidney disease with heart failure and stage 1 through stage 4 chronic kidney disease, or unspecified chronic kidney disease; D53.9 Nutritional anemia, unspecified; I25.10 Atherosclerotic heart disease of native coronary artery without angina pectoris; E78.5 Hyperlipidemia, unspecified; N18.3 Chronic kidney disease, stage 3 (moderate); E11.22 Type 2 diabetes mellitus with diabetic chronic kidney disease; I50.9 Heart failure, unspecified; F17.210 Nicotine dependence, cigarettes, uncomplicated; F32.9 Major depressive disorder, single episode, unspecified; Z83.3 Family history of diabetes mellitus; Z91.19 Patient's noncompliance with other medical treatment and regimen; Z95.1 Presence of aortocoronary bypass graft; Z79.4 Long term (current) use of insulin; Z82.49 Family history of ischemic heart disease and other diseases of the circulatory system; Z90.49 Acquired absence of other specified parts of digestive tract; Z86.73 Personal history of transient ischemic attack (TIA), and cerebral infarction without residual deficits; K86.81 Exocrine pancreatic insufficiency
CPT/HCPCS: 80053; 81003; 82948; 83690; 85025; 85027; 86140; 99281; 99284; J2270; J2405; J3010; J7040